=== PATIENT | female | born 1940 | race Caucasian/White ===

== ENCOUNTER 2016-07-16 02:52 | Emergency (ER) | payer MEDICARE, MEDICAID ==
[~2016-07-16] VITALS: Ht 149.9 cm; Wt 48.0 kg
[~2016-07-16 02:52] MED LIST: DEXL30CA3 PO; DULO60CA44 PO; GABA-531 PO; HYDR-519 PO; LIPA1CAP8 PO
[2016-07-16] MEDS ORDERED: MIDAZOLAM HCL 2 MG/2 ML VIAL IV ONE (03:45)
[2016-07-16] MEDS ORDERED: MORPHINE SULFATE 4 MG/ML CPJ (NOT FOR IM USE) IV ONE (04:00)
[2016-07-16 04:38] VITALS: BP 120/71
== END 2016-07-16 05:45 | disposition home or self-care (01) ==
LOC: ER 02:52
DX: K62.2 Anal prolapse (principal); F17.210 Nicotine dependence, cigarettes, uncomplicated; M19.90 Unspecified osteoarthritis, unspecified site; M79.7 Fibromyalgia; Z90.710 Acquired absence of both cervix and uterus; Z79.899 Other long term (current) drug therapy
CPT/HCPCS: 45900; 96374; 96375; 99284; J2250; J2270

== ENCOUNTER 2016-08-06 03:59 | Emergency (ER) | payer MEDICARE, MEDICAID ==
[~2016-08-06] VITALS: Ht 154.9 cm; Wt 48.0 kg
[~2016-08-06 03:59] MED LIST changes: +CYMBALTA; -DEXL30CA3 PO; -DULO60CA44 PO; -GABA-531 PO; -HYDR-519 PO; +HYDR-523 PO; -LIPA1CAP8 PO; +NEXIUM; +ONDA4TAB5 PO; +PROBIOTIC PO; +[UNRECOGNIZED DRUG - OTHER] PO
[2016-08-06] MEDS ORDERED: MIDAZOLAM HCL 2 MG/2 ML VIAL IV ONE (05:30)
[2016-08-06] MEDS ORDERED: MORPHINE SULFATE 4 MG/ML CPJ (NOT FOR IM USE) IV ONE (05:30)
[2016-08-06] MEDS ORDERED: LIDOCAINE HCL 1% 20ML VIAL (Pyxis) INJ MC ONE (05:45)
[2016-08-06] MEDS ORDERED: BACITRACIN ZINC OINT UDPKT TOP ONE (05:45)
[2016-08-06] MEDS ORDERED: ACETAMINOPHEN 325MG TABLET PO ONE (07:15)
[2016-08-06 07:53] VITALS: BP 117/71
== END 2016-08-06 08:04 | disposition home or self-care (01) ==
LOC: ER 04:04
DX: S01.81XA Laceration without foreign body of other part of head, initial encounter (principal); K62.89 Other specified diseases of anus and rectum; W22.8XXA Striking against or struck by other objects, initial encounter; Y93.01 Activity, walking, marching and hiking; Y99.9 Unspecified external cause status; Y92.89 Other specified places as the place of occurrence of the external cause; Z79.899 Other long term (current) drug therapy; M19.90 Unspecified osteoarthritis, unspecified site; G40.909 Epilepsy, unspecified, not intractable, without status epilepticus; M79.7 Fibromyalgia
CPT/HCPCS: 96374; 99284; J2250; J2270; J3490